=== PATIENT | male | born 1995 | race Two or more races ===

== ENCOUNTER 2016-11-19 18:39 | Emergency (ER) | payer OTHER ==
[~2016-11-19] VITALS: Ht 165.1 cm; Wt 72.6 kg
[2016-11-19] MEDS ORDERED: TdaP Vaccine 0.5ml Syr IM ONE (19:15)
[2016-11-19] MEDS ORDERED: Lidocaine 1% MPF 10mg/ml 5ml IM ONE (19:15)
[2016-11-19] MEDS ORDERED: Bacitracin Oint UD TOPIC ONE (19:15)
[2016-11-19] MEDS ORDERED: BACITRACIN-P28.35 GM TP (19:18)
[2016-11-19] MEDS ORDERED: CEPHALEXIN500 MG ORAL (19:18)
--- NOTE | 2016-11-19 19:18 | Emergency Room Report ---
History of Present Illness General Chief Complaint: Laceration Source: Patient Present Illness HPI 21 YO Male presents to the ED c/o laceration to laceration of the left ring finger x 1 day. Patient reports minimal bleeding denies taking blood thinning medications states injury occurred while at work patient does not know when his last tetanus vaccination was. Patient denies pain at this time states that his finger is tender with palpation. Denies numbness tingling or loss of sensation or gross motor movements of the extremities, incontinence of bowel or bladder. Denies CP, Palpitations, LOC, AMS, dizziness, Changes in Vision, Sensation, paresthesias, or a sudden severe headache. Allergies: Coded Allergies: No Known Allergies (Unverified , 11/19/16) Patient History Past Medical History: see triage record Past Surgical History: none Pertinent Family History: none Immunizations: other - tetanus not UTD Reviewed Nursing Documentation: PMH: Agreed, PSxH: Agreed Nursing Documentation-PMH Past Medical History: No Stated History Review of Systems All Other Systems: negative except mentioned in HPI Physical Exam Vital Signs Date Time Temp Pulse Resp B/P Pulse Ox O2 Delivery O2 Flow Rate FiO2 11/19/16 18:48 97.9 77 15 130/93 99 Room Air Sp02 EP Interpretation: reviewed, normal General Appearance: no apparent distress, alert, GCS 15, non-toxic Head: normocephalic, atraumatic Eyes: bilateral eye PERRL, bilateral eye normal inspection ENT: hearing grossly normal, normal pharynx, no angioedema, normal voice Neck: full range of motion, no bony tend, supple/symm/no masses Respiratory: lungs clear, normal breath sounds, speaking full sentences Cardiovascular #1: regular rate, rhythm, no edema, normal capillary refill Cardiovascular #2: 2+ radial (R), 2+ radial (L) Musculoskeletal: back normal, gait/station normal, normal range of motion Neurologic: alert, oriented x3, responsive, motor strength/tone normal, sensory intact, speech normal Psychiatric: judgement/insight normal, memory normal, mood/affect normal Skin: laceration - 0.5 cm laceration to the left ring finger, linear, no fb noted. Lymphatic: no adenopathy Procedures Splinting Splinting : Consent: Verbal Location: left ring finger Splint: figner splint Pre-Proc Neuro Vasc Exam: normal Post-Proc Neuro Vasc Exam: normal Patient Tolerated: Well Complications: None Laceration/Wound Repair Laceration/Wound Repair : Consent: Verbal Wound Location: upper extremity - left ring finger Wound's Depth, Shape: superficial, linear Wound Length (cm): 0 Wound Explored: clean Irrigated w/ Saline (ccs): 100 Betadine Prep?: Yes Anesthesia: 1% Lidocaine Volume Anesthetic (ccs): 2 Wound Repaired With: sutures Suture Size/Type: 5:0 Number of Sutures: 2 Layer Closure?: No Sterile Dressing Applied?: Yes Splint Applied?: Yes Type of Splint Applied: finger splint Sling Applied?: No Patient Tolerated: Well Complications: None Medical Decision Making PA Attestation Dr. Roe is my supervising Physician whom patient management has been discussed with. Diagnostic Impression: Primary Impression: Laceration ER Course Pt. presents to the ED c/o laceration to laceration of the left ring finger. Ddx considered but are not limited to laceration, tendon injury, cellulitis, amputation Vital signs: are WNL, pt. is afebrile H&PE are most consistent with: 0.5cm left ring finger laceration approx ORDERS: none required at this time, the diagnosis is clinical ED INTERVENTIONS: -Tetanus vaccine was administered as pt. vaccination status was unknown. - The wound was copiously irrigated with normal saline, and explored for foreign body for which no FB was found. - pt. is anesthetized with 1%lidocaine - The wound was approximated and closed using 2 interrupted 5.0 Prolene sutures. -Bacitracin and sterile dressing is applied. Finger Splint applied by wardrobe technician. Pt. remains neurovascularly intact. Discussed with patient: That we make every effort to approximate the laceration as best as we can so that scarring will be as cosmetically pleasing as possible with our limited cosmetic skill set in the Emergency dept. Regardless of our best efforts there will be scarring after laceration repair. The extent of scarring is unknown at this time. DISCHARGE: At this time pt. is stable for d/c to home. Will provide printed patient care instructions, and any necessary prescriptions. Care plan and follow up instructions have been discussed with the patient prior to discharge. Last Vital Signs Date Time Temp Pulse Resp B/P Pulse Ox O2 Delivery O2 Flow Rate FiO2 11/19/16 18:48 97.9 77 15 130/93 99 Room Air Disposition: HOME, SELF-CARE Condition: Stable Scripts Bacitracin/Polymyxin B Sulfate (BACITRACIN-POLYMYXIN OINTMENT) 28.35 Gm Oint...g. 1 APPLIC TP BID for 10 Days, #28 GM Prov: Ashley Ratliff 11/19/16 Cephalexin* (KEFLEX*) 500 Mg Capsule 500 MG ORAL EVERY 12 HOURS for 7 Days, #14 CAP 0 Refills Prov: Ashley Ratliff 11/19/16 Departure Forms: Return to Work Return to Work Date: Nov 20, 2016 Work Restrictions: No Heavy Lifting Other Restrictions: wear finger splint, limited use of left hand, keep clean and dry. Return to Full Activity: Nov 29, 2016 Patient Instructions: Laceration Care, Adult Additional Instructions: Take medications as directed. Follow up with PCP in 3-5 days Return sooner to ED if new symptoms occur, or current symptoms become worse. SUTURE REMOVAL IN 10 DAYS - Please note that this Emergency Department Report was dictated using [employer] technology software, occasionally this can lead to erroneous entry secondary to interpretation by the dictation equipment. Ashley Ratliff Nov 19, 2016 19:18
[2016-11-19] MEDS ORDERED: NKM (19:20)
[2016-11-19 19:54] VITALS: BP 127/91
[2016-11-19 19:55] VITALS: BP 130/93
== END 2016-11-19 19:56 | disposition home or self-care (01) ==
LOC: EMR 18:59
DX: S61.215A Laceration without foreign body of left ring finger without damage to nail, initial encounter (principal); W26.0XXA Contact with knife, initial encounter; Y92.511 Restaurant or cafe as the place of occurrence of the external cause; Y99.0 Civilian activity done for income or pay; Z23 Encounter for immunization
CPT/HCPCS: 29130; 90471; 90715